=== PATIENT | female | born 1965 | race Caucasian/White ===

== ENCOUNTER → 2017-06-07 | Outpatient (CLI) | payer BC ==
[~2017-06-07] MED LIST: OXYC-12 PO
--- NOTE | 2017-06-07 13:24 | Diagnostic Imaging Report ---
INDICATION: Lump in the right neck for several years. FINDINGS: Sonographic interrogation of the area of palpable abnormality in the right neck was performed. There is an ovoid, circumscribed hypoechoic mass just below the skin surface at this location measuring 13 mm x 5 mm x 9 mm. This does demonstrate posterior acoustic enhancement. No internal vascularity is identified. No other masses are seen. IMPRESSION: Circumscribed, ovoid hypoechoic mass in the right neck correlating with the palpable abnormality. This may represent a sebaceous cyst. Clinical followup could be obtained to confirm stability. No other abnormalities are detected. Dictated by: Dictated on workstation # [id number]
== END ==
LOC: RAD 11:37
PROVIDERS: ATTEND Nurse Practitioner Family
DX: R22.1 Localized swelling, mass and lump, neck (principal)
CPT/HCPCS: 76536

== ENCOUNTER 2021-04-28 05:39 | Outpatient (CLI) | payer BC ==
[~2021-04-28] VITALS: Ht 160 cm; Wt 65.0 kg
[2021-04-28] MEDS ORDERED: ASPI-999 PO (10:14)
[2021-04-28] MEDS ORDERED: LISI10TA25 PO (10:14)
== END 2021-04-28 15:28 | disposition home or self-care (01) ==
LOC: PREOP 05:39
PROVIDERS: ATTEND Surgery
DX: Z01.818 Encounter for other preprocedural examination (principal)